=== PATIENT | female | born 1990 | race Caucasian/White ===

== ENCOUNTER 2019-06-24 01:23 | Emergency (ER) | payer BC, OTHER ==
[2019-06-24 01:29] VITALS: BP 146/93; PULSE 89; RESP 18; TEMP 98
--- NOTE | 2019-06-24 01:50 | XR ---
EXAMINATION TYPE: XR ribs LT w pa chest xray DATE OF EXAM: 06/24/2019 COMPARISON: NONE HISTORY: Left rib pain TECHNIQUE: 5 views FINDINGS: Heart and mediastinum are normal. Lungs are clear of infiltrate. There is no pleural effusi on or pneumothorax. The left ribs appear intact. IMPRESSION: Normal chest. Normal left ribs.
[2019-06-24] MEDS ORDERED: LIDOCAINE 5% PATCH TOPICAL STA (02:00)
--- NOTE | 2019-06-24 02:02 | ED ---
General Adult HPI - General Chief complaint: Extremity Problem,Nontraumatic Stated complaint: [facility] Rib Injury Time Seen by Provider: 06/24/19 01:30 Source: patient Mode of arrival: ambulatory Limitations: no limitations - History of Present Illness Initial comments: 29-year-old female patient presents to the emergency department today for evaluation of left rib pain. Patient states she's been having pain to the area over the last week. States that states she was pushing a been at work and felt a pop to the area. Patient states her pain worsened after that. States at rest her pain is minimal however when she moves it becomes worse. Denies any shortness of breath or increased pain with breathing. Denies any fever or chills. Denies any significant tenderness over the area. States that she does a lot of lifting at work and believes this is how she obtained the initial injury. She states she did take 400 mg of Motrin prior to arrival which did seem to help. Patient denies any headache, neck pain, back pain, dizziness, weakness, abdominal pain, nausea, vomiting, or difficulties with bowel movements or urination. - Related Data Previous Rx's Medication Instructions Recorded Lidocaine 5% Patch [Lidoderm] 1 patch TOPICAL DAILY #30 patch 06/24/19 Allergies Allergy/AdvReac Type Severity Reaction Status Date / Time No Known Allergies Allergy Verified 08/31/14 18:50 Review of Systems ROS Statement: Those systems with pertinent positive or pertinent negative responses have been documented in the HPI. ROS Other: All systems not noted in ROS Statement are negative. Past Medical History Past Medical History: Hypertension History of Any Multi-Drug Resistant Organisms: None Reported Past Surgical History: No Surgical Hx Reported Past Psychological History: No Psychological Hx Reported Smoking Status: Never smoker Past Alcohol Use History: None Reported Past Drug Use History: None Reported General Exam Limitations: no limitations General appearance: alert, in no apparent distress, other (This is a well- developed, well-nourished adult female patient in no acute distress. Vital signs upon presentation are temperature 98.2F and pulse 89, respirations 18, blood pressure 146/93, pulse ox 100% on room air.) Eye exam: Present: normal appearance, PERRL, EOMI. Absent: scleral icterus, conjunctival injection, periorbital swelling ENT exam: Present: normal exam, normal oropharynx, mucous membranes moist Respiratory exam: Present: normal lung sounds bilaterally. Absent: respiratory distress, wheezes, rales, rhonchi, stridor, chest wall tenderness Cardiovascular Exam: Present: regular rate, normal rhythm, normal heart sounds. Absent: systolic murmur, diastolic murmur, rubs, gallop, clicks GI/Abdominal exam: Present: soft, normal bowel sounds. Absent: distended, tenderness, guarding, rebound, rigid Back exam: Present: normal inspection. Absent: vertebral tenderness Neurological exam: Present: alert, oriented X3, CN II-XII intact Psychiatric exam: Present: normal affect, normal mood Skin exam: Present: warm, dry, intact, normal color. Absent: rash Course Vital Signs 06/24/19 01:24 Temperature 98.0 F Pulse Rate 89 Respiratory 18 Rate Blood Pressure 146/93 O2 Sat by Pulse 100 Oximetry Medical Decision Making - Medical Decision Making 29-year-old female patient presents to the emergency department today for evaluation of left rib pain. Physical examination revealed mild tenderness over the left ribs. Lungs are clear to auscultation with good air movement. X-ray of the left ribs and chest are obtained and showed no acute abnormalities. We did discuss muscle strain as a cause for her symptoms. She'll be treated with Lidoderm patch and anti-inflammatories. She is educated regarding coughing and deep breathing. She is instructed to follow-up with her primary care physician for recheck in 1-2 days. Return parameters discussed in detail. They verbalized understanding and agreed with this plan. - Radiology Data Radiology results: report reviewed, image reviewed Left ribs and chest x-ray were obtained. Report was reviewed in its entirety. Impression by Dr. Hernandez shows normal chest. Normal left ribs appear Disposition Clinical Impression: Rib pain on left side Disposition: HOME SELF-CARE Condition: Good Instructions (If sedation given, give patient instructions): Muscle Strain (ED) Additional Instructions: Continue taking ibuprofen for pain control. Take 600 mg every 6 hours. Use Lidoderm patch for pain relief. Limited pushing and pulling for the next week. Follow-up with [facility] or her primary care physician for recheck in 1-2 days. Return to the emergency department immediately for any new, worsening, or concerning symptoms. Prescriptions: Lidocaine 5% Patch [Lidoderm] 1 patch TOPICAL DAILY #30 patch Is patient prescribed a controlled substance at d/c from ED?: No Referrals: Edil Johnson DO [Primary Care Provider] - 1-2 days Time of Disposition: 02:02
== END 2019-06-24 02:24 | disposition home or self-care (01) ==
LOC: EC 01:23
DX: S29.9XXA Unspecified injury of thorax, initial encounter (principal); R07.81 Pleurodynia; I10 Essential (primary) hypertension; X50.9XXA Other and unspecified overexertion or strenuous movements or postures, initial encounter; Y93.89 Activity, other specified; Y92.69 Other specified industrial and construction area as the place of occurrence of the external cause; Y99.0 Civilian activity done for income or pay
CPT/HCPCS: 99283